=== PATIENT | female | born 1985 | race Caucasian/White ===

== ENCOUNTER 2023-02-11 10:47 | Outpatient (OUT) | payer OTHER, SELFPAY ==
[2023-02-11 12:15] LABS: Free T3 3.38 pg/mL (2.18-3.98); Free T4 1.54 ng/dL (0.76-1.46); Thyroid Stimulating Hormone 0.051 uIU/mL (0.358-3.740)
== END 2023-02-11 10:48 | disposition home or self-care (01) ==
LOC: LAB 10:50
PROVIDERS: PCP Family Medicine; Visit Provider Family Medicine
DX: E03.9 Hypothyroidism, unspecified (principal)
CPT/HCPCS: 36415; 84439; 84443; 84481

== ENCOUNTER 2023-04-17 08:44 | Outpatient (OUT) | payer OTHER, SELFPAY ==
[2023-04-17 12:28] LABS: Free T4 1.23 ng/dL (0.76-1.46)
[2023-04-17 13:14] LABS: Free T3 2.79 pg/mL (2.18-3.98)
== END 2023-04-17 08:45 | disposition home or self-care (01) ==
LOC: LAB 08:45
PROVIDERS: PCP Family Medicine; Visit Provider Family Medicine
DX: E03.9 Hypothyroidism, unspecified (principal)
CPT/HCPCS: 36415; 84439; 84443; 84481

== ENCOUNTER 2024-03-31 08:39 | Outpatient (OUT) | payer OTHER, SELFPAY ==
--- OUTSIDE RECORDS SUMMARY | 2024-03-31 08:56 | XMS_ITS | CCD ---
Author Organization [facility] Care Team Providers Care Linux Consultant Name Role Phone DR JOYCE HUYNH Attending Unavailable DR JOYCE HUYNH Consulting Unavailable DR JOYCE HUYNH Primary Care Unavailable DR JOYCE HUYNH Admitting Unavailable Iveth Fitzpatrick Unavailable DAVID ORDONEZ Attending Unavailable DAVID ORDONEZ Referring Unavailable JOYCE HUYNH Attending Unavailable Joyce Huynh MD Primary Care Provider [phone] Medications Current Medications Medication Drug Class(es) Dates Sig (Normalized) Sig (Original) acetaminophen 325 mg / butalbital 50 mg / caffeine 40 mg oral tablet (5 sources) Barbiturate, Central Nervous System Stimulant, Methylxanthine Start: 02-18-2024 take 1 tablet by mouth four times daily as needed for headache butalbital-acetamin ophen-caffeine 50-325-40 MG tablet Indications: Sinus headache Take 1 tablet by mouth 4 (four) times a day as needed for headaches 30 tablet 1 02/18/2024 Active cholecalciferol 0.025 mg oral tablet (6 sources) Vitamin D Start: 04-02-2023 take 1 tablet by mouth once in the morning cholecalciferol (Vitamin D-3) 25 MCG tablet Indications: Vitamin D deficiency Take 1 tablet (25 mcg) by mouth in the morning. 90 tablet 3 04/02/2023 Active fluticasone propionate 0.05 mg/actuat metered dose nasal spray (6 sources) Corticosteroid Start: 02-18-2024 take 2 spray(s) nasal route once daily fluticasone (Flonase) 50 MCG/ACT nasal spray Indications: Chronic rhinosinusitis Administer 2 sprays into each nostril Daily Shake gently. Before first use, prime pump. After use, clean tip and replace cap. 16 g 2 02/18/2024 Active Start: 04-26-2019 take 1 spray(s) nasa l route once daily as needed Fluticasone Propionate 50 MCG/ACT 1 spray in each nostril Nasally Once a day for 21 days Apr, Not-Taking/PRN hydroCHLOROthiazide 25 mg oral tablet (2 sources) Thiazide Diuretic Start: 03-30-2024 take 1 tablet by mouth once daily hydroCHLOROthiazide (HYDRODiuril) 25 MG tablet Indications: Benign essential hypertension (CMS/HCC) Take 1 tablet (25 mg) by mouth Daily 30 tablet 5 03/30/2024 Active Start: 03-30-2024 take 1 tablet by anshu th once daily hydroCHLOROthiazide (HYDRODiuril) 25 MG tablet Indications: Benign essential hypertension (CMS/HCC) Take 1 tablet (25 mg) by mouth Daily 30 tablet 5 03/30/2024 Active ketoconazole 20 mg/ml medicated shampoo (3 sources) Azole Antifungal End: 02-18-2024 ketoconazole (NIZOral) 2 % shampoo Apply 1 application topically 2 (two) times a week 02/18/2024 Discontinued levothyroxine sodium 0.15 mg oral tablet (7 sources) l-Thyroxine Start: 09-13-2023 take 1 tablet by mouth once daily levothyroxine (Synthroid, Levoxyl) 150 MCG tablet Indications: Primary hypothyroidism (CMS/HCC) Take 1 tablet (150 mcg) by mouth Daily 90 tablet 3 09/13/2023 Active take 1 tablet by anshu th once daily in the morning Levothyroxine Sodium 137 MCG 1 tablet in the morning on an empty stomach Orally Once a day Active methylPREDNISolone 4 mg oral tablet (1 source) Corticosteroid Start: 05-16-2023 methylPREDNISolone 4 MG as directed Orally for 6 May, Active phentermine hydrochloride 37.5 mg oral tablet (2 sources) Sympathomimetic Amine Anorectic Start: 03-30-2024 End: 04-29-2024 take 36-36.9 tablets by mouth before mealtime phentermine (Adipex-P) 37.5 MG tablet Indications: Class 2 severe obesity due to excess calories with serious comorbidity and body mass index (BMI) of 36.0 to 36.9 in adult (CMS/HCC) Take 1 tablet (37.5 mg) by mouth in the morning. Take before meals. 30 tablet 03/30/2024 04/29/2024 Active predniSONE 50 mg oral tablet (2 sources) Start: 02-18-2024 End: 02-24-2024 take 1 tablet by mouth once daily predniSONE (Deltasone) 50 MG tablet Indications: Chronic rhinosinusitis Take 1 tablet (50 mg) by mouth Daily for 6 days 6 tablet 02/18/2024 02/24/2024 Active semaglutide (Ozempic, 1 MG/DOSE,) 4 MG/3ML solution pen-injector (3 sources) End: 02-18-2024 semaglutide (Ozempic, 1 MG/DOSE,) 4 MG/3ML solution pen-injector Inject under the skin 02/18/2024 Discontinued semaglutide (Oze mpic, 1 MG/DOSE,) 4 MG/3ML solution pen-injector Inject under the skin Active Completed/Discontinued Medications Medication Drug Class(es) Dates Sig (Normalized) Sig (Original) amoxicillin 875 mg oral tablet (1 source) Penicillin-class Antibacterial Start: 04-26-2019 take 1 tablet by mouth every twelve hours Amoxicillin 875 MG 1 tablet Orally every 12 hrs for 7 days Apr, Not-Taking/PRN Problems Active Problems Problem Classification Problem Date Documented Da te Episodic/Chronic Acute and chronic tonsillitis (1 source) Acute tonsillitis; Translations: [ACUTE TONSILLITIS] Episodic Disorders of lipid metabolism (8 sources) Primary hypertriglyceridemi a; Translations: [Pure hyperglyceridemia] Onset: 04-02-2023 04-02-2023 Chronic Essential hypertension (4 sources) Benign essential hypertension; Translations: [Essential (primary) hypertension] Onset: 04-02-2023 03-30-2024 Chronic Headache; including migraine (7 sources) Sinus headache; Translations: [Sinus headache] Onset: 02-18-2024 02-18-2024 Episodic Nutritional deficiencies (7 sources) Vitamin D deficiency, unspecified; Translations: [Vitamin D deficiency] Onset: 07-31-2022 04-02-2023 Chronic Other nutritional; endocrine; and metabolic disorders (6 sources) Metabolic syndrome X; Translations: [Metabolic syndrome X] Onset: 04-02-2023 04-02-2023 Chronic Other nutritional; endocrine; and metabolic disorders (4 sources) Body mass index 30+ - obesity; Translations: [Obesity, unspecified] Onset: 04-02-2023 04-02-2023 Chronic Other nutritional; endocrine; and metabolic disorders (4 sources) Severe obesity; Translations: [Class 2 severe obesity due to excess calories with serious comorbidity and body mass index (BMI) of 36.0 to 36.9 in adult ([facility])] Onset: 04-02-2023 03-30-2024 Chronic Other upper respiratory infections (7 sources) Chronic sinusitis, unspecified; Translations: [Chronic rhinitis] Onset: 02-18-2024 02-18-2024 Chronic Other upper respiratory infections (3 sources) Pharyngitis; Translations: [Sore throat (viral) NOS] Episodic Otitis media and related conditions (1 source) Otitis media; Translations: [Otitis media of both ears] Episodic Thyroid disorders (8 sources) Hypothyroidism, unspecified; Translations: [Unspecified acquired hypothyroidism] Onset: 04-02-2023 04-02-2023 Chronic Past or Other Problems Problem Classification Problem Date Documented Da te Episodic/Chronic Other circulatory disease (6 sources) Elevated blood-pressure reading without diagnosis of hypertension; Translations: [Elevated blood-pressure reading, without diagnosis of hypertension] Onset: 04-02-2023 04-02-2023 Episodic Other skin disorders (6 sources) Hirsutism; Translations: [Hirsutism] Onset: 04-02-2023 04-02-2023 Episodic Results Test Name Value Interpretation Reference Range Facility [facility] 05-16-2023 S. pyogenes Org specific cx Ql (Throat) Negative [facility] Other [facility] [employer] [facility] [employer] Other CBC AUTO DIFFon 07-28-2022 BASO # 0.1 103/ul Normal 0.0-0.1 [facility] Comment on above: Performed By: #### C BC #### [facility] [address] [address] [address] Matilde Dalton Basophils/100 WBC (Bld) 0.6 % Normal 0.2-2.0 [facility] Comment on above: Performed By: #### C BC #### [facility] [address] [place] [address] Dr. Matilde Dalton EO # 0.2 103/ul Normal 0.0-0.7 [facility] Comment on above: Performed By: #### C BC #### [facility] [address] [place] [address] Dr. Matilde Dalton Eosinophils/100 WBC (Bld) 2.2 % Normal 0.9-7.0 [facility] Comment on above: Performed By: #### C BC #### [facility] [address] [place] [address] Dr. Matilde Dalton Erythrocyte distribution width (RBC) [Ratio] 12.2 % Normal 11.0-15.0 [facility] Comment on above: Performed By: #### C BC #### [facility] [address] [place] [address] Dr. Matilde Dalton Hematocrit (Bld) [Volume fraction] 42.3 % Normal 36.0-48.0 [facility] Comment on above: Performed By: #### C BC #### [facility] [address] [place] [address] Dr. Matilde Dalton Hemoglobin (Bld) [Mass/Vol] 14.3 g/dL Normal 12.0-16.0 [facility] Comment on above: Performed By: #### C BC #### [facility] [address] [place] [address] Dr. Matilde Dalton IG # 0.04 10e3/ul Critically high 0.00-0.03 [facility] Comment on above: Performed By: #### C BC #### [facility] [address] [place] [address] Dr. Matilde Dalton IG % 0.4 % Normal 0.0-0.5 [facility] Comment on above: Performed By: #### C BC #### [facility] [address] [place] [address] Dr. Matilde Dalton LYMPH # 3.1 103/ul Normal 1.2-3.8 [facility] Comment on above: Performed By: #### C BC #### [facility] [address] [place] [address] Dr. Matilde Dalton Lymphocytes/100 WBC (Bld) 31.6 % Normal 20.5-60.0 [facility] Comment on above: Performed By: #### C BC #### [facility] [address] [place] [address] Dr. Matilde Dalton MANUAL DIFF REQ NO Normal [facility] Comment on above: Performed By: #### C BC #### [facility] [address] [place] [address] Dr. Matilde Dalton MCH (RBC) [Entitic mass] 29.8 pg Normal 26.7-34.0 [facility] Comment on above: Performed By: #### C BC #### [facility] [address] [place] [address] Dr. Matilde Dalton MCHC (RBC) [Mass/Vol] 33.8 g/dL Normal 29.9-35.2 [facility] Comment on above: Performed By: #### C BC #### [facility] [address] [place] [address] Dr. Matilde Dalton MCV (RBC) [Entitic vol] 88.1 fL Normal 81.0-99.0 [facility] Comment on above: Performed By: #### C BC #### [facility] [address] [place] [address] Dr. Matilde Dalton MONO # 0.8 103/ul Normal 0.3-0.8 [facility] Comment on above: Performed By: #### C BC #### [facility] [address] [place] [address] Dr. Matilde Dalton Monocytes/100 WBC (Bld) 8.2 % Normal 1.7-12.0 [facility] Comment on above: Performed By: #### C BC #### [facility] [address] [place] [address] Dr. Matilde Dalton NEUT # 5.5 103/ul Normal 1.4-6.5 [facility] Comment on above: Performed By: #### C BC #### [facility] [address] [place] [address] Dr. Matilde Dalton Neutrophils/100 WBC (Bld) 57.0 % Normal 43.0-75.0 [facility] Comment on above: Performed By: #### C BC #### [facility] [address] [place] [address] Dr. Matilde Dalton Platelet mean volume (Bld) [Entitic vol] 9.8 fL Normal 9.5-13.5 [facility] Comment on above: Performed By: #### C BC #### [facility] [address] [place] [address] Dr. Matilde Dalton PLT 231 103/ul Normal 150-450 [facility] Comment on above: Performed By: #### C BC #### [facility] [address] [place] [address] Dr. Matilde Dalton RBC 4.80 106/ul Normal 4.20-5.40 [facility] Comment on above: Performed By: #### C BC #### [facility] [address] [place] [address] Dr. Matilde Dalton WBC 9.7 103/ul Normal 4.0-11.0 [facility] Comment on above: Performed By: #### C BC #### [facility] [address] [place] [address] Dr. Matilde Dalton FREE T3on 07-28-2022 FREE T3 2.20 pg/mlL Normal 2.18-3.98 [facility] Comment on above: Performed By: #### T SH, BMP, LIPID, LIVER, FT3 #### [facility] [address] [place] [address] Dr. Matilde Dalton FREE T4on 07-28-2022 Free T4 [Mass/Vol] 1.06 ng/dL Normal 0.76-1.46 [facility] Comment on above: Performed By: #### V ITAD, FT4 #### [facility] [address] [place] [address] Dr. Matilde Dalton GLYCOHEMOGLOBIN A1Con 2022 ADA RECOMMENDATION SEE BELOW Normal [facility] Comment on above: Result Comment: ADA RECOMMENDED LIMIT 4.0 - 6.0 ADA THERAPEUTIC TARGET < 7.0 ACTION SUGGESTED > 7.0 Performed By: #### A 1C #### [facility] [address] [address] [address] Matilde Dalton Glucose [Mass/Vol] 103 mg/dL Normal [facility] Comment on above: Performed By: #### A 1C #### [facility] [address] [place] [address] Dr. Matilde Dalton HbA1c (Bld) [Mass fraction] 5.2 % Normal 4.5-6.2 [facility] Comment on above: Performed By: #### A 1C #### [facility] [address] [place] [address] Dr. Matilde Dalton LIPID PROFILEon 07-28-2022 CHOL-HDL RATIO NORM SEE BELOW Normal [facility] Comment on above: Result Comment: 3.3 - 4.4 LOW RISK 4.4 - 7.1 AVERAGE RISK 7.1 - 11.0 MODERATE RISK >11.0 HIGH RISK Performed By: #### T SH, BMP, LIPID, LIVER, FT3 #### [facility] [address] [place] [address] Dr. Matilde Dalton Cholesterol [Mass/Vol] 165 mg/dL Normal <=200 [facility] Comment on above: Performed By: #### T SH, BMP, LIPID, LIVER, FT3 #### [facility] [address] [place] [address] Dr. Matilde Dalton Cholesterol in HDL [Mass/Vol] 37 mg/dL Critically low 40-60 [facility] Comment on above: Performed By: #### T SH, BMP, LIPID, LIVER, FT3 #### [facility] [address] [address] [address] Matilde Dalton Cholesterol in LDL [Mass/Vol] 108.4 mg/dL Normal [facility] Comment on above: Performed By: #### T SH, BMP, LIPID, LIVER, FT3 #### [facility] [address] [place] [address] Dr. Matilde Dalton Cholesterol.total/Ch olesterol in HDL [Mass ratio] 4.5 {ratio} Normal [facility] Comment on above: Performed By: #### T SH, BMP, LIPID, LIVER, FT3 #### [facility] [address] [address] [address] Matilde Dalton HDL NORMAL > or = 60 mg/dl - LOW CARDIOVASCULAR RISK <40 mg/dl - HIGH CARDIOVASCULAR RISK Normal [facility] Comment on above: Performed By: #### T SH, BMP, LIPID, LIVER, FT3 #### [facility] [address] [address] [address] Matilde Dalton LDL CALC NORMAL SEE BELOW Normal [facility] Comment on above: Result Comment: <100 mg/dl OPTIMAL 100 - 129 mg/dl NEAR OR ABOVE OPTIMAL 130 - 159 mg/dl BORDERLINE HIGH 160 - 189 mg/dl HIGH >190 mg/dl VERY HIGH Performed By: #### T SH, BMP, LIPID, LIVER, FT3 #### [facility] [address] [address] [address] Matilde Dalton Triglyceride [Mass/Vol] 98 mg/dL Normal <=150 [facility] Comment on above: Performed By: #### T SH, BMP, LIPID, LIVER, FT3 #### [facility] [address] [address] [address] Matilde Dalton VLDL CALC 19.6 mg/dL Normal [facility] Comment on above: Performed By: #### T SH, BMP, LIPID, LIVER, FT3 #### [facility] [address] [address] [address] Matilde Dalton LIVER PROFILEon 07-28-2022 Albumin [Mass/Vol] 4.2 g/dL Normal 3.4-5.0 [facility] Comment on above: Performed By: #### T SH, BMP, LIPID, LIVER, FT3 #### [facility] [address] [address] [address] Matilde Dalton Albumin/Globulin [Mass ratio] 1.3 {ratio} Normal [facility] Comment on above: Performed By: #### T SH, BMP, LIPID, LIVER, FT3 #### [facility] [address] [address] [address] Matilde Dalton ALP [Catalytic activity/Vol] 52 U/L Normal 46-116 [facility] Comment on above: Performed By: #### T SH, BMP, LIPID, LIVER, FT3 #### [facility] [address] [address] [address] Matilde Dalton ALT [Catalytic activity/Vol] 17 U/L Normal 14-59 [facility] Comment on above: Performed By: #### T SH, BMP, LIPID, LIVER, FT3 #### [facility] [address] [address] [address] Matilde Dalton AST [Catalytic activity/Vol] 12 U/L Critically low 15-37 [facility] Comment on above: Performed By: #### T SH, BMP, LIPID, LIVER, FT3 #### [facility] [address] [place] [address] Dr. Matilde Dalton BILI, CONJUGATED 0.1 mg/dL Normal 0.0-0.2 [facility] Comment on above: Performed By: #### T SH, BMP, LIPID, LIVER, FT3 #### [facility] [address] [place] [address] Dr. Matilde Dalton Bilirubin [Mass/Vol] 0.6 mg/dL Normal 0.2-1.0 [facility] Comment on above: Performed By: #### T SH, BMP, LIPID, LIVER, FT3 #### [facility] [address] [place] [address] Dr. Matilde Dalton Globulin (S) [Mass/Vol] 3.2 g/dL Normal [facility] Comment on above: Performed By: #### T SH, BMP, LIPID, LIVER, FT3 #### [facility] [address] [place] [address] Dr. Matilde Dalton Protein [Mass/Vol] 7.4 g/dL Normal 6.4-8.2 [facility] Comment on above: Performed By: #### T SH, BMP, LIPID, LIVER, FT3 #### [facility] [address] [place] [address] Dr. Matilde Dalton PROF CHEM 8 (BAS METB)on 03- 25-2023 Anion gap [Moles/Vol] 9.5 mmol/L Normal [facility] Comment on above: Performed By: #### T SH, BMP, LIPID, LIVER, FT3 #### [facility] [address] [address] [address] Matilde Dalton Calcium [Mass/Vol] 9.0 mg/dL Normal 8.5-10.1 [facility] Comment on above: Performed By: #### T SH, BMP, LIPID, LIVER, FT3 #### [facility] [address] [address] [address] Matilde Dalton Chloride [Moles/Vol] 103 mmol/L Normal 98-107 [facility] Comment on above: Performed By: #### T SH, BMP, LIPID, LIVER, FT3 #### [facility] [address] [place] [address] Dr. Matilde Dalton CO2 [Moles/Vol] 27.3 mmol/L Normal 21.0-32.0 [facility] Comment on above: Performed By: #### T SH, BMP, LIPID, LIVER, FT3 #### [facility] [address] [address] [address] Matilde Dalton Creatinine [Mass/Vol] 0.68 mg/dL Normal 0.55-1.02 [facility] Comment on above: Performed By: #### T SH, BMP, LIPID, LIVER, FT3 #### [facility] [address] [place] [address] Dr. Matilde Dalton EGFR-AF EMIRATI >60 Normal >=60 [facility] Comment on above: Performed By: #### T SH, BMP, LIPID, LIVER, FT3 #### [facility] [address] [address] [address] Matilde Dalton EGFR-NON AF EMIRATI >60 Normal >=60 [facility] Comment on above: Performed By: #### T SH, BMP, LIPID, LIVER, FT3 #### [facility] [address] [address] [address] Matilde Dalton Glucose [Mass/Vol] 89 mg/dL Normal 74-106 [facility] Comment on above: Performed By: #### T SH, BMP, LIPID, LIVER, FT3 #### [facility] [address] [place] [address] Dr. Matilde Dalton Potassium [Moles/Vol] 3.8 mmol/L Normal 3.5-5.1 [facility] Comment on above: Performed By: #### T SH, BMP, LIPID, LIVER, FT3 #### [facility] [address] [place] [address] Dr. Matilde Dalton Sodium [Moles/Vol] 136 mmol/L Normal 136-145 [facility] Comment on above: Performed By: #### T SH, BMP, LIPID, LIVER, FT3 #### [facility] [address] [place] [address] Dr. Matilde Dalton Urea nitrogen [Mass/Vol] 17.0 mg/dL Normal 7.0-18.0 [facility] Comment on above: Performed By: #### T SH, BMP, LIPID, LIVER, FT3 #### [facility] [address] [place] [address] Dr. Matilde Dalton Urea nitrogen/Creatinine [Mass ratio] 25.0 mg/mg Normal [facility] Comment on above: Performed By: #### T SH, BMP, LIPID, LIVER, FT3 #### [facility] [address] [place] [address] Dr. Matilde Dalton TSHon 07-28-2022 TSH 6.161 uIU/mL Critically high 0.358-3.740 [facility] Comment on above: Performed By: #### T SH, BMP, LIPID, LIVER, FT3 #### [facility] [address] [place] [address] Dr. Matilde Dalton VITAMIN D 25 OHon 07-28-2022 VIT D 25-OH 32.3 ng/mL Normal [facility] Comment on above: Performed By: #### V ITAD, FT4 #### [facility] [address] [place] [address] Dr. Matilde Dalton VIT D RANGES SEE BELOW Normal [facility] Comment on above: Result Comment: <20 ng/mL Vit D deficient 20 - <30 ng/mL Vit D insufficient 30 - 100 ng/mL Vit D sufficient >100 ng/mL Potential Toxicity Performed By: #### V ITAD, 4 #### [facility] [address] [place] [address] Dr. Matilde Dalton Vital Signs Date Time Vital Sign Value Performing Clinician Facility 03-30-2024 10:28-0500 Body height 162.6 cm Joyce Huynh MD Work Phone: [facility] 03-30-2024 10:28-0500 Body mass index (BMI) [Ratio] 36.73 kg/m2 Joyce Huynh MD Work Phone: [facility] 03-30-2024 10:28-0500 Body temperature 97.81 [degF] Joyce Huynh MD Work Phone: [facility] 03-30-2024 10:28-0500 Body weight 97.07 kg Joyce Huynh MD Work Phone: [facility] 03-30-2024 10:28-0500 Diastolic blood pressure 86 mm[Hg] Joyce Huynh MD Work Phone: [facility] 03-30-2024 10:28-0500 Heart rate 88 /min Joyce Huynh MD Work Phone: [facility] 03-30-2024 10:28-0500 Respiratory rate 22 /min Joyce Huynh MD Work Phone: [facility] 03-30-2024 10:28-0500 SaO2% (BldA) [Mass fraction] 98 % Joyce Huynh MD Work Phone: [facility] 03-30-2024 10:28-0500 Systolic blood pressure 162 mm[Hg] Joyce uHynh MD Work Phone: [facility] 02-18-2024 09:28-0400 Body height 162.6 cm Joyce Huynh MD Work Phone: [facility] 02-18-2024 09:28-0400 Body mass index (BMI) [Ratio] 35.7 kg/m2 Joyce Huynh MD Work Phone: [facility] 02-18-2024 09:28-0400 Body temperature 97.5 [degF] Joyce Huynh MD Work Phone: [facility] 02-18-2024 09:28-0400 Body weight 94.35 kg Joyce Huynh MD Work Phone: [facility] 02-18-2024 09:28-0400 Diastolic blood pressure 90 mm[Hg] Joyce Huynh MD Work Phone: [facility] 02-18-2024 09:28-0400 Heart rate 104 /min Joyce Huynh MD Work Phone: [facility] 02-18-2024 09:28-0400 Respiratory rate 22 /min Joyce Huynh MD Work Phone: [facility] 02-18-2024 09:28-0400 SaO2% (BldA) [Mass fraction] 98 % Joyce Huynh MD Work Phone: [facility] 02-18-2024 09:28-0400 Systolic blood pressure 170 mm[Hg] Joyce Huynh MD Work Phone: [facility] 05-16-2023 12:55-0500 Body height 165.1 cm [employer] Other [facility] Other 05-16-2023 12:55-0500 Body mass index (BMI) [Ratio] 32.71 kg/m2 [employer] Other [facility] Other 05-16-2023 12:55-0500 Body temperature 97.5 [degF] Iveth Fitzpatrick Other [facility] Other 05-16-2023 12:55-0500 Body weight 89.18 kg Iv[employer] Other [facility] Other 05-16-2023 12:55-0500 Diastolic blood pressure 96 mm[Hg] Iveth Fitzpatrick Other [employer] Other 05-16-2023 12:55-0500 SaO2% (BldA) [Mass fraction] 98 % Iveth Fitzpatrick Other [facility] Other 05-16-2023 12:55-0500 Systolic blood pressure 140 mm[Hg] Iveth Fitzpatrick Other [facility] Other Encounters Encounter Date Encounter Type Care Provider Facility Start: 03-30-2024 End: 03-30-2024 Bamboo flowsheet Joyce Huynh MD Work Phone: [facility] Start: 03-30-2024 End: 03-30-2024 Bamboo flowsheet Joyce Huynh MD Work Phone: [facility] Start: 03-30-2024 End: 03-30-2024 Patient encounter procedure Joyce Huynh MD Work Phone: [facility] Work Phone: Start: 03-30-2024 End: 03-30-2024 Periodic preventive med est patient 18-39 yrs Joyce Huynh MD Work Phone: [facility] Comment on above: Annual physical exam (Primary Dx); Benign essential hypertension (CMS/HCC); Primary hypothyroidism (CMS/HCC); Class 2 severe obesity due to excess calories with serious comorbidity and body mass index (BMI) of 36.0 to 36.9 in adult (CMS/HCC); Hypertriglyceridemia, essential (CMS/HCC) Start: 02-18-2024 End: 02-18-2024 Bamboo flowsheet Joyce Huynh MD Work Phone: [facility] Start: 02-18-2024 End: 02-18-2024 Bamboo flowsheet Joyce Huynh MD Work Phone: [facility] Start: 02-18-2024 End: 02-18-2024 Office outpatient visit 25 minutes Joyce Huynh MD Work Phone: [facility] Comment on above: Sinus headache (Prim addison Dx); Elevated blood-pressure reading without diagnosis of hypertension; Chronic rhinosinusitis Start: 02-18-2024 End: 02-18-2024 ambulatory JOYCE HUYNH Not Available Start: 05-23-2023 End: 05-23-2023 ambulatory DAVID ORDONEZ Not Available Start: 05-23-2023 End: 05-23-2023 ambulatory DAVID ORDONEZ Not Available Start: 05-16-2023 End: 05-16-2023 ambulatory Iveth Fitzpatrick Other [facility] Other Start: 05-16-2023 Office outpatient ne w 30 minutes Iveth Fitzpatrick [facility] Start: 07-31-2022 Encounter for genera l adult medical examination without abnormal findings DR JOYCE HUYNH [facility] Start: 07-28-2022 End: 07-29-[address] JOYCE HUYNH Facility:[facility] Start: 07-28-2022 End: 07-29-2022 Encounter for general adult medical examination without abnormal findings DR JOYCE HUYNH Facility:[facility] Procedures Date Procedure Procedure Detail Performing Clinician Start: 09-19-2022 Microscopic observat ion [Identifier] in Cervix by Cyto stain Joyce Huynh MD Work Phone: Plan of Treatment Date Care Activity Detail Author Start: 09-20-2027 Screening for malign ant neoplasm of cervix [facility] Start: 09-19-2025 Screening for malign ant neoplasm of cervix Pap Smear [facility] Start: 05-11-2024 End: 05-11-2024 Patient encounter procedure 05/11/2024 8:30 AM EST Office Visit [facility] [address] [place] [id number] Joyce Huynh MD [address] [place] [address] [facility] Start: 03-30-2024 End: 03-30-2025 Basic metabolic 1998 panel - Serum or Plasma Basic metabolic panel Lab Routine Annual physical exam Expected: 03/30/2024 (Approximate), Expires: 03/30/2025 [facility] Comment on above: Expected: 03/30/2024 (Approximate), Expires: 03/30/2025 Start: 03-30-2024 End: 03-30-2025 CBC W Auto Differential panel - Blood CBC and differential Lab Routine Annual physical exam Expected: 03/30/2024 (Approximate), Expires: 03/30/2025 [facility] Comment on above: Expected: 03/30/2024 (Approximate), Expires: 03/30/2025 Start: 03-30-2024 End: 03-30-2025 Hemoglobin A1c/Hemoglobin.total in Blood Hemoglobin A1c Lab Routine Annual physical exam Expected: 03/30/2024 (Approximate), Expires: 03/30/2025 [facility] Work Phone: Comment on above: Expected: 03/30/2024 (Approximate), Expires: 03/30/2025 Start: 03-30-2024 End: 03-30-2025 Hepatic function 2000 panel - Serum or Plasma Hepatic function panel Lab Routine Annual physical exam Expected: 03/30/2024 (Approximate), Expires: 03/30/2025 [facility] Comment on above: Expected: 03/30/2024 (Approximate), Expires: 03/30/2025 Start: 03-30-2024 End: 03-30-2025 Lipid 1996 panel - Serum or Plasma Lipid panel Lab Routine Annual physical exam Expected: 03/30/2024 (Approximate), Expires: 03/30/2025 [facility] Comment on above: Expected: 03/30/2024 (Approximate), Expires: 03/30/2025 Start: 03-30-2024 End: 03-30-2025 Thyrotropin [Units/volume] in Serum or Plasma TSH Lab Routine Annual physical exam Expected: 03/30/2024 (Approximate), Expires: 03/30/2025 [facility] Comment on above: Expected: 03/30/2024 (Approximate), Expires: 03/30/2025 Start: 03-30-2024 End: 03-30-2025 Thyroxine (T4) free [Mass/volume] in Serum or Plasma T4, free Lab Routine Primary hypothyroidism (CMS/HCC) Expected: 03/30/2024 (Approximate), Expires: 03/30/2025 [facility] Comment on above: Expected: 03/30/2024 (Approximate), Expires: 03/30/2025 Start: 03-30-2024 End: 03-30-2024 Patient encounter procedure [facility] Comment on above: Arrived Start: 02-18-2024 End: 02-18-2024 Patient encounter procedure 02/18/2024 9:15 AM EDT Office Visit [facility] [address] [place] [address] Joyce Huynh MD [address] [place] [phone] Arrived [facility] Comment on above: Arrived Start: 01-05-2024 Influenza vaccination Influenza Vacc ine (#1) [facility] Payers Date Payer Category Payer Private Health Insurance [id number] 2024 Private Health Insurance [id number] 1984 Unknown [id number] 1984 Unknown [id number] 1984 Unknown [id number] 1984 Unknown [id number] 1959 Unknown [id number] Social History Date Type Detail Facility Unknown if ever smoked [facility] Other Start: 03-26-2023 End: 03-30-2024 Sex Assigned At [facility] Start: 04-02-2023 Tobacco smoking status NHIS Never smoked tobacco [facility] Start: 04-02-2023 Tobacco use and exposure Smokeless tobacco non-user [facility] Start: 06-03-2023 End: 03-30-2024 Alcoholic beverage intake Current drinker of alcohol (finding) [facility] Start: 03-26-2023 End: 06-03-2023 Alcoholic beverage intake [facility] Within the last year , have you been afraid of your partner or ex-partner? No [facility] Do you belong to any clubs or organizations such as moravian groups, unions, fraternal or athletic groups, or school groups? Yes [facility] Are you now , , , , never or living with a partner? [facility] How often to you hav e a drink containing alcohol? 2-4 times a month [facility] How many standard dr inks containing alcohol do you have on a typical day? 1 or 2 [facility] How often do you hav e 6 or more drinks on 1 occasion? Less than monthly [facility] How hard is it for y ou to pay for the very basics like food, housing, medical care, and heating Patient declined [facility] Do you feel stress - tense, restless, nervous, or anxious, or unable to sleep at night because your mind is troubled all the time - these days [OSQ] Not at all [facility] (I/We) worried wheth er (my/our) food would run out before (I/we) got money to buy more. Never true [facility] Start: 1985 Sex assigned at Not on file [facility] History of Present illness Narrative 03-30-2024 Joyce Huynh MD - 03/30/2024 10:45 AM Jailene Huynh MD - 03/30/2024 10:43 AM Jailene Huynh MD - 03/30/2024 10:43 AM Jailene Huynh MD - 03/30/2024 10:43 AM EST Note Date & Type Note Facility 03-30-2024 History of Presen t illness Narrative Associated Problem(s): Hypertriglyceridemia, essential (CMS/HCC) Due for labs. Associated Problem(s): Class 2 severe obesity due to excess calories with serious comorbidity and body mass index (BMI) of 36.0 to 36.9 in adult (CMS/HCC) Patient overweight and difficult time losing weight. Discussed proper diet and regular aerobic exercise. Recommend Weight Watchers and need to limit calories and smaller portions. Need to increase activity and regular aerobic exercise several days a week for 30 minutes at a time. Interested in adipex and warned of potential cardiac side effects. Script written for first month and will need to recheck weight in 1 month. OARRS reviewed. Continue medications as prescribed. Associated Problem(s): Primary hypothyroidism ([facility]) Due for labs. Associated Problem(s): Benign essential hypertension ([facility]) BP remains elevated and start treatment for HTN with hydrochlorothiazide. Continue to monitor PRN. Discussed DASH diet. Associated Problem(s): Annual physical exam Due for labs. Discussed proper diet and regular aerobic exercise. Need aerobic exercise 5-6 days a week for 30 minutes at a time. Smaller portions and limit total calories. Colonoscopy after age 45. Tetanus every 10 years. Advised not to smoke. Images from the original note were not included. Subjective Patient ID: Ella Wilkins is a 38 y.o. female who presents for Follow-up (1 m). Presents for annual PE. Weight up 22 pounds in the past year. Remains active and exercises several days a week. Tries to watch diet and eat healthy. Increased fruits and vegetables. Smaller portions and limits snacking. Tries to limit total daily calories. Due for labs. Monitoring BP and remains elevated. BP 160-170 systolic. BP 162/86 today. Requests adipex to help with weight loss. Review of Systems Respiratory: Negative for cough, shortness of breath and wheezing. Cardiovascular: Negative for chest pain and palpitations. Gastrointestinal: Negative for abdominal pain, diarrhea, nausea and vomiting. Genitourinary: Negative for dysuria. Objective Physical Exam Constitutional: General: She is not in acute distress. Appearance: Normal appearance. HENT: Head: Normocephalic. Right Ear: Tympanic membrane normal. Left Ear: Tympanic membrane normal. Eyes: Extraocular Movements: Extraocular movements intact. Pupils: Pupils are equal, round, and reactive to light. Cardiovascular: Rate and Rhythm: Normal rate and regular rhythm. Heart sounds: No murmur heard. No friction rub. No gallop. Pulmonary: Effort: Pulmonary effort is normal. Breath sounds: Normal breath sounds. No wheezing, rhonchi or rales. Abdominal: General: Bowel sounds are normal. There is no distension. Palpations: Abdomen is soft. Tenderness: There is no abdominal tenderness. There is no guarding or rebound. Musculoskeletal: General: No swelling or tenderness. Cervical back: Neck supple. Right lower leg: No edema. Left lower leg: No edema. Skin: Findings: No erythema or rash. Neurological: General: No focal deficit present. Mental Status: She is alert and oriented to person, place, and time. Cranial Nerves: No cranial nerve deficit. Motor: No weakness. Gait: Gait normal. Assessment/Plan Problem List Items Addressed This Visit Primary hypothyroidism (CMS/HCC) Due for labs. Relevant Orders T4, free Benign essential hypertension (CMS/HCC) BP remains elevated and start treatment for HTN with hydrochlorothiazide. Continue to monitor PRN. Discussed DASH diet. Relevant Medications hydroCHLOROthiazide (HYDRODiuril) 25 MG tablet Class 2 severe obesity due to excess calories with serious comorbidity and body mass index (BMI) of 36.0 to 36.9 in adult (CMS/HCC) Patient overweight and difficult time losing weight. Discussed proper diet and regular aerobic exercise. Recommend Weight Watchers and need to limit calories and smaller portions. Need to increase activity and regular aerobic exercise several days a week for 30 minutes at a time. Interested in adipex and warned of potential cardiac side effects. Script written for first month and will need to recheck weight in 1 month. OARRS reviewed. Continue medications as prescribed. Relevant Medications phentermine (Adipex-P) 37.5 MG tablet Annual physical exam - Primary Due for labs. Discussed proper diet and regular aerobic exercise. Need aerobic exercise 5-6 days a week for 30 minutes at a time. Smaller portions and limit total calories. Colonoscopy after age 45. Tetanus every 10 years. Advised not to smoke. Relevant Orders Hemoglobin A1c Basic metabolic panel CBC and differential Hepatic function panel Lipid panel TSH documented in this encounter [facility] History of Present illness Narrative 02-18-2024 Joyce Huynh MD - 02/18/2024 10:03 AM Roberto Huynh MD - 02/18/2024 10:03 AM Roberto Huynh MD - 02/18/2024 10:03 AM Roberto Huynh MD - 02/18/2024 9:15 AM EDT Note Date & Type Note Facility 02-18-2024 History of Presen t illness Narrative Associated Problem(s): Sinus headache Frequent SORENSON and start fioricet PRN. Associated Problem(s): Elevated blood-pressure reading without diagnosis of hypertension BP elevated and may be causing SORENSON. Monitor BP PRN and if remains elevated will need to treat for HTN. Discussed DASH diet. Associated Problem(s): Chronic rhinosinusitis Fluid behind TM and likely contributing to SORENSON. Treat with prednisone and start flonase. Images from the original note were not included. Subjective Patient ID: Ella Wilkins is a 38 y.o. female who presents for Headache. C/o SORENSON and pressure in head for the past few weeks. Pain and pressure on left side head. More intense with laying down and with exertion. Increased pressure and occasional throbbing usually on left side of head. Not associated with photophobia or phonophobia. No nausea or emesis. Using OTC PRN and helps dull pain but not resolve SORENSON. Reports increased congestion few weeks prior to onset. No cough. Still occasional sinus pressure. No vertigo and not off balance. Pressure worse with laying down or bending over. In past SORENSON around menses but never this severe. BP elevated today at 170/90. Not checking away from office but has been elevated in past. Headache Pertinent negatives include no abdominal pain, coughing, nausea or vomiting. Review of Systems Respiratory: Negative for cough, shortness of breath and wheezing. Cardiovascular: Negative for chest pain and palpitations. Gastrointestinal: Negative for abdominal pain, diarrhea, nausea and vomiting. Genitourinary: Negative for dysuria. Neurological: Positive for headaches. Objective Physical Exam Constitutional: General: She is not in acute distress. Appearance: Normal appearance. HENT: Head: Normocephalic. Ears: Comments: Bilateral TM clear but bulging with fluid. Mouth/Throat: Comments: Postnasal drip Eyes: Extraocular Movements: Extraocular movements intact. Pupils: Pupils are equal, round, and reactive to light. Cardiovascular: Rate and Rhythm: Normal rate and regular rhythm. Heart sounds: No murmur heard. No friction rub. No gallop. Pulmonary: Effort: Pulmonary effort is normal. Breath sounds: Normal breath sounds. No wheezing, rhonchi or rales. Abdominal: General: Bowel sounds are normal. There is no distension. Palpations: Abdomen is soft. Tenderness: There is no abdominal tenderness. There is no guarding or rebound. Musculoskeletal: Cervical back: Neck supple. Right lower leg: No edema. Left lower leg: No edema. Neurological: Mental Status: She is alert. Assessment/Plan Problem List Items Addressed This Visit Elevated blood-pressure reading without diagnosis of hypertension BP elevated and may be causing SORENSON. Monitor BP PRN and if remains elevated will need to treat for HTN. Discussed DASH diet. Sinus headache - Primary Frequent SORENSON and start fioricet PRN. Relevant Medications [id number] 50-325-40 MG tablet Chronic rhinosinusitis Fluid behind TM and likely contributing to SORENSON. Treat with prednisone and start flonase. Relevant Medications predniSONE (Deltasone) 50 MG tablet fluticasone (Flonase) 50 MCG/ACT nasal spray documented in this encounter [facility] Evaluation note 05-16-2023 Note Date & Type Note Facility 05-16-2023 Evaluation note Encounter Date Diagnosis Assessment Notes May, Sore throat (ICD-10 - J02.9) May, Viral URI with cough (ICD-10 - J06.9) Advised patient that rapid Strep test was negative today. Patient declines/refuses COVID/influenza testing today. Advised patient that will treat as viral URI. Advised that viral illnesses may last 7 to 10 days, antibiotics are not indicated at this time. Will send in Rx of steroid to use as directed. Encouraged supportive care as directed, increase fluids and rest, Tylenol as directed, OTC cough/cold remedies as directed on packaging, cool mist humidifier, throat lozenges. Discussed infection control practices such as good hand washing and mask wearing. Patient to follow up with PCP if symptoms persist or worsen despite treatment. Immediate eval for SOB, difficulty breathing, chest pain, fevers that do not break with antipyretic or any other concerning symptoms as reviewed on patient education handout. Patient verbalizes understanding and is agreeable to treatment plan. Patient left in stable condition. [facility] Other Evaluation note Note Date & Type Note Facility Evaluation note Diagnosis Sinus headache- Primary Headache Elevated blood-pressure reading without diagnosis of hypertension Elevated blood pressure reading without diagnosis of hypertension Chronic rhinosinusitis Unspecified sinusitis (chronic) documented in this encounter [facility] Evaluation note Note Date & Type Note Facility Evaluation note Diagnosis Sinus headache- Primary Headache Elevated blood-pressure reading without diagnosis of hypertension Elevated blood pressure reading without diagnosis of hypertension Chronic rhinosinusitis Unspecified sinusitis (chronic) Annual physical exam- Primary Routine general medical examination at a health care facility Benign essential hypertension (CMS/HCC) Essential hypertension, benign Primary hypothyroidism (CMS/HCC) Unspecified hypothyroidism Class 2 severe obesity due to excess calories with serious comorbidity and body mass index (BMI) of 36.0 to 36.9 in adult (CMS/HCC) Hypertriglyceridemia, essential (CMS/HCC) Pure hyperglyceridemia documented in this encounter [facility] History general Narrative - Reported Note Date & Type Note Facility History general Narrative - Reported Type Medical History Hypothyroid Hospitalization History childbirth [employer] [facility] [employer] Other Summary Purpose Family History No Family History Records FoundNo Family History Records Found Advance Directives No Advanced Directives Records FoundNo Advanced Directives Records Found Additional Source Comments INFORMATION SOURCE (unrecogn ized section and content) DATE CREATED AUTHOR 08/04/2022 [facility] DATE CREATED AUTHOR AUTHOR'S ORGANIZ ATION 02/20/2024 [facility] EPIC REASON FOR VISIT (unrecogniz ed section and content) Reason Comments Headache Reason Comments Follow-up 1 m Care Teams (unrecognized sec tion and content) [employer] Consult[employer] Relationship Specialty Start Date End Date Joyce Huynh MD [address] [place] [phone] PCP - General Family Medicine 02/18/24 [employer] Relationship Specialty Start Date End Date Joyce Huynh MD [address] [place] [phone] PCP - General Family Medicine 02/18/24 [employer] Relationship Specialty Start Date End Date Joyce Huynh MD [address] [place] [phone] PCP - General Family Medicine 02/18/24 [employer] Relationship Specialty Start Date End Date Joyce Huynh MD [address] [place] [phone] PCP - General Family Medicine 02/18/24 FOR RECORDS PERTAINING TO PATIENTS WHO ARE OR HAVE BEEN ENROLLED IN A CHEMICAL DEPENDENCY/SUBSTANCEABUSE PROGRAM, SOME INFORMATION MAY BE OMITTED. This clinical summary was aggregated from multiple sources. Caution should be exercised in using it in the provision of clinical care. This summary normalizes information from multiple sources, and as a consequence, information in this document may materially change the coding, format and clinical context of patient data. In addition, data may be omitted in some cases. CLINICAL DECISIONS SHOULD BE BASED ON THE PRIMARY CLINICAL RECORDS. [facility] [employer] [facility]. provides no warranty or guarantee of the accuracy or completeness of information in this document.
[2024-03-31 09:13] LABS: Basophils Absolute Auto 0.1 10^3/uL (0.0-0.1); Basophils Percent Auto 0.6 % (0.2-2.0); Eosinophils Absolute Auto 0.3 10^3/uL (0.0-0.7); Eosinophils Percent Auto 3.6 % (0.9-7.0); Hematocrit 43.2 % (36.0-48.0); Hemoglobin 14.4 g/dL (12.0-16.0); Immature Granulocytes Abs Auto 0.04 10^3/uL (0.00-0.03); Immature Granulocytes Pct Auto 0.5 % (0.0-0.5); Lymphocytes Percent Auto 23.2 % (20.5-60.0); Mean Corpuscular HGB Conc 33.3 g/dL (29.9-35.2); Mean Corpuscular Hemoglobin 29.8 pg (26.7-34.0); Mean Corpuscular Volume 89.4 fL (81.0-99.0); Mean Platelet Volume 10.2 fL (9.5-13.5); Monocytes Absolute Auto 0.6 10^3/uL (0.3-0.8); Monocytes Percent Auto 7.5 % (1.7-12.0); Neutrophils Absolute Auto 5.5 10^3/uL (1.4-6.5); Neutrophils Percent Auto 64.6 % (43.0-75.0); Platelet Count 202 10^3/uL (150-450); Red Blood Count 4.83 10^6/uL (4.20-5.40); Red Cell Distribution Width 11.8 % (11.0-15.0); White Blood Count 8.5 10^3/uL (4.0-11.0)
[2024-03-31 11:03] LABS: Free T4 1.47 ng/dL (0.76-1.46)
[2024-03-31 11:04] LABS: Alanine Aminotransferase 24 U/L (14-59); Anion Gap 15.8; Aspartate Amino Transferase 11 U/L (15-37); BUN Creatinine Ratio 17.7; Bilirubin Direct 0.1 mg/dL (0.0-0.2); Bilirubin Total 0.4 mg/dL (0.2-1.0); Calcium 8.7 mg/dL (8.5-10.1); Carbon Dioxide 22.6 mmol/L (21.0-32.0); Chloride 106 mmol/L (98-107); Estimated GFR (African America >60 (>=60 mL/min/1.73m^2); Estimated GFR (Non-African Ame >60 (>=60 mL/min/1.73m^2); Glucose 92 mg/dL (74-106); Potassium 4.4 mmol/L (3.5-5.1); Sodium 140 mmol/L (136-145)
[2024-03-31 11:05] LABS: Albumin Globulin Ratio 1.1; Albumin Level 3.7 g/dL (3.4-5.0); Alkaline Phosphatase 51 U/L (46-116); Chol HDL Ratio 4.5; Cholesterol 179 mg/dL (<=200); Globulin 3.3 g/dL; HDL Cholesterol 40 mg/dL (40-60); Thyroid Stimulating Hormone 0.252 uIU/mL (0.358-3.740); Triglycerides 126 mg/dL (<=150); VLDL CHOLESTEROL 25.2 mg/dL
[2024-03-31 11:37] LABS: Estimated Average Glucose 111 mg/dL; Glycohemoglobin A1C 5.5 % (4.5-6.2)
== END 2024-03-31 08:40 | disposition home or self-care (01) ==
LOC: LAB 08:41
PROVIDERS: PCP Family Medicine; Visit Provider Family Medicine
DX: Z00.00 Encounter for general adult medical examination without abnormal findings (principal); E03.9 Hypothyroidism, unspecified
CPT/HCPCS: 36415; 80048; 80061; 80076; 83036; 84439; 84443; 85025